=== PATIENT | male | born 1995 | race Two or more races ===

== ENCOUNTER 2017-12-01 03:50 | Emergency (ER) | payer OTHER ==
[2017-12-01] MEDS ORDERED: NS 1,000 ML IV ONE (03:51)
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
[2017-12-01 04:25] VITALS: BP 136/98
== END 2017-12-01 05:38 | disposition home or self-care (01) ==
LOC: EDUNIT#
PROC: 08QNXZZ Repair Right Upper Eyelid, External Approach (ICD-10-PCS; principal; 2017-12-01)
PROC: 0HQ0XZZ Repair Scalp Skin, External Approach (ICD-10-PCS; principal; 2017-12-01)
DX: S01.01XA Laceration without foreign body of scalp, initial encounter (principal); S01.111A Laceration without foreign body of right eyelid and periocular area, initial encounter; F10.920 Alcohol use, unspecified with intoxication, uncomplicated; Y04.2XXA Assault by strike against or bumped into by another person, initial encounter